=== PATIENT | male | born 1960 | race African-American/Black ===

== ENCOUNTER 2016-07-04 18:47 | Emergency (ER) | payer OTHER ==
[~2016-07-04] VITALS: Ht 167.6 cm; Wt 93.0 kg
[~2016-07-04 18:47] MED LIST: IOHEXOL-300 100 ML BOTTLE ONE; LISI-604 PO; METF10002 PO; PRED5TAB48 PO; SODIUM CHLORIDE 0.9% 10ML VIAL ONE
[2016-07-04 20:48] LABS: CHLORIDE 103 mEq/L (98-107)
[2016-07-04 20:49] LABS: BASOPHILS % 0.6 % (0.0-2.0); DIFFERENTIAL COMMENT 0; EOSINOPHILS % 0.4 % (0.0-5.0); HEMATOCRIT. 40.7 % (42.0-52.0); HEMOGLOBIN. 13.3 g/dL (14.0-18.0); LYMPHOCYTES % 11.5 % (20.0-50.0); MEAN CORPUSCULAR HGB CONC 32.7 g/dL (31.0-37.0); MEAN CORPUSCULAR VOLUME 85.7 fL (80.0-94.0); MEAN PLATELET VOLUME 8.7 fl (7.4-10.4); NEUTROPHILS % 78.5 % (40.0-76.0); PLATELET 216 x1000/uL (130-400); RED BLOOD CELL COUNT 4.75 mill/uL (4.7-6.1); RED CELL DISTRIBUTION WIDTH 14.9 % (11.6-14.6); WHITE BLOOD COUNT 17.8 x1000/uL (4.5-11.0)
[2016-07-04 20:54] LABS: PARTIAL THROMBOPLASTIN TIME 24.7 sec (24.0-34.0); PROTHROMBIN TIME 10.6 sec
[2016-07-04 20:55] LABS: ALBUMIN 2.9 g/dL (3.4-5.0); ANION GAP 18; CALCIUM 8.4 mg/dL (8.5-10.1); CARBON DIOXIDE 25 mEq/L (21-32); INDEX HEMOLYSI 1 (1-3); INDEX ICTERIC 1 (1-4); INDEX LIPEMIC 1 (1-3); LIPASE 1310 IU/L (73-393); UREA NITROGEN BLOOD 21 mg/dL (7-21)
[2016-07-04 21:00] LABS: ALANINE AMINOTRANSFERASE 64 IU/L (13-61); TROPONIN I 0.02 ng/mL (0.00-0.04); eGFR > 60 mL/min (>60)
[2016-07-04] MEDS ORDERED: TRAMADOL 50MG TABLET PO NR (21:45)
[2016-07-04] MEDS ORDERED: IBUPROFEN 600MG TABLET PO NR (21:45)
[2016-07-04] MEDS ORDERED: POTASSIUM CHLORIDE 20MEQ TABLET SR PO NR (23:45)
[2016-07-05 02:34] VITALS: BP 154/91
== END 2016-07-05 02:58 | disposition home or self-care (01) ==
LOC: ER 18:48
DX: E11.42 Type 2 diabetes mellitus with diabetic polyneuropathy (principal); D72.829 Elevated white blood cell count, unspecified; E87.6 Hypokalemia; R74.8 Abnormal levels of other serum enzymes; I11.0 Hypertensive heart disease with heart failure; I50.9 Heart failure, unspecified; R20.2 Paresthesia of skin; J44.9 Chronic obstructive pulmonary disease, unspecified; E78.00 Pure hypercholesterolemia, unspecified
CPT/HCPCS: 36415; 71010; 74177; 80053; 82962; 83690; 84484; 85025; 85610; 85730; 93005; 99285; A4216; Q9967; Z7610

== ENCOUNTER 2016-07-06 05:15 | Emergency (ER) | payer OTHER ==
[~2016-07-06] VITALS: Ht 170.2 cm; Wt 91.0 kg
[~2016-07-06 05:15] MED LIST changes: -IOHEXOL-300 100 ML BOTTLE ONE; -SODIUM CHLORIDE 0.9% 10ML VIAL ONE
[2016-07-06 05:34] VITALS: BP 127/91
== END 2016-07-06 06:53 | disposition home or self-care (01) ==
LOC: ER 05:15
DX: Z76.0 Encounter for issue of repeat prescription (principal); E11.9 Type 2 diabetes mellitus without complications; I10 Essential (primary) hypertension
CPT/HCPCS: 82962; 99283

== ENCOUNTER 2016-08-17 16:07 | Emergency (ER) | payer MEDICAID, OTHER ==
[~2016-08-17] VITALS: Ht 167.6 cm; Wt 91.0 kg
[2016-08-17] MEDS ORDERED: TRAMADOL 50MG TABLET PO ONE (17:45)
[2016-08-17 18:08] LABS: EOSINOPHILS % 1.2 % (0.0-5.0); HEMATOCRIT. 38.2 % (42.0-52.0); HEMOGLOBIN. 12.4 g/dL (14.0-18.0); LYMPHOCYTES % 10.5 % (20.0-50.0); MEAN CORPUSCULAR HEMOGLOBIN 27.9 pg (28.0-32.0); MEAN CORPUSCULAR VOLUME 85.8 fL (80.0-94.0); MEAN PLATELET VOLUME 8.9 fl (7.4-10.4); MONOCYTES % 9.4 % (2.0-8.0); NEUTROPHILS % 77.9 % (40.0-76.0); PLATELET 202 x1000/uL (130-400); RED BLOOD CELL COUNT 4.45 mill/uL (4.7-6.1); RED CELL DISTRIBUTION WIDTH 14.8 % (11.6-14.6)
[2016-08-17 18:10] LABS: CARBON DIOXIDE 25 mEq/L (21-32); CHLORIDE 108 mEq/L (98-107)
[2016-08-17 18:18] LABS: TROPONIN I < 0.02 ng/mL (0.00-0.04)
[2016-08-17 18:52] VITALS: BP 130/88
== END 2016-08-17 19:18 | disposition home or self-care (01) ==
LOC: ER 19:00
DX: R07.9 Chest pain, unspecified (principal); J45.909 Unspecified asthma, uncomplicated; E11.9 Type 2 diabetes mellitus without complications; I10 Essential (primary) hypertension; J84.89 Other specified interstitial pulmonary diseases; M33.20 Polymyositis, organ involvement unspecified; Z76.0 Encounter for issue of repeat prescription
CPT/HCPCS: 36415; 71010; 80053; 83880; 84484; 85025; 99285; Z7610

== ENCOUNTER 2016-09-19 12:15 | Emergency (ER) | payer OTHER ==
[~2016-09-19] VITALS: Ht 165.1 cm; Wt 100.0 kg
[2016-09-19 14:31] LABS: PROTHROMBIN TIME 10.2 sec
[2016-09-19 14:33] LABS: *AMPHETAMINES SCREEN URINE NEGATIVE (NEGATIVE); *BARBITURATES SCREEN URINE NEGATIVE (NEGATIVE); *BENZODIAZEPINES SCREEN URINE NEGATIVE (NEGATIVE); *COCAINE SCREEN URINE NEGATIVE (NEGATIVE); CANNABINOID URINE SCREEN NEGATIVE (NEGATIVE); METHADONE URINE SCREEN NEGATIVE (NEGATIVE); PHENCYCLIDINE URINE SCREEN NEGATIVE (NEGATIVE)
[2016-09-19 14:36] LABS: CARBON DIOXIDE 25 mEq/L (21-32); CHLORIDE 106 mEq/L (98-107); HEMATOCRIT. 41.3 % (42.0-52.0); HEMOGLOBIN. 13.7 g/dL (14.0-18.0); MEAN CORPUSCULAR HEMOGLOBIN 28.3 pg (28.0-32.0); MEAN CORPUSCULAR VOLUME 85.3 fL (80.0-94.0); MEAN PLATELET VOLUME 8.8 fl (7.4-10.4); PLATELET 207 x1000/uL (130-400); RED BLOOD CELL COUNT 4.85 mill/uL (4.7-6.1); RED CELL DISTRIBUTION WIDTH 15.3 % (11.6-14.6)
[2016-09-19 14:38] LABS: TROPONIN I < 0.02 ng/mL (0.00-0.04)
[2016-09-19 14:44] LABS: OPIATES URINE SCREEN NEGATIVE (NEGATIVE)
[2016-09-19] MEDS ORDERED: KETOROLAC 30MG/ML VIAL IV ONE (15:30)
[2016-09-19] MEDS ORDERED: HYDROCODONE/ACETAMINOPHEN 5/325MG TABLET PO ONE (16:00)
[2016-09-19 16:09] VITALS: BP 135/98
[2016-09-19 16:39] LABS: PLATELET ESTIMATE NORMAL
== END 2016-09-19 16:11 | disposition home or self-care (01) ==
LOC: ER 14:32
DX: R09.1 Pleurisy (principal); I10 Essential (primary) hypertension; E11.9 Type 2 diabetes mellitus without complications; J45.909 Unspecified asthma, uncomplicated; Z87.01 Personal history of pneumonia (recurrent)
CPT/HCPCS: 36415; 71010; 80048; 80305; 82962; 83880; 84484; 85025; 85610; 93005; 99285; Z7610

== ENCOUNTER 2016-11-29 19:22 | Emergency (ER) | payer OTHER ==
[~2016-11-29] VITALS: Ht 167.6 cm; Wt 91.0 kg
[2016-11-29] MEDS ORDERED: KETOROLAC 30MG/ML VIAL IV STA (22:26)
[2016-11-29] MEDS ORDERED: SODIUM CHLORIDE 0.9% 1,000 ML IV ONE (22:26)
[2016-11-29 22:50] LABS: CLARITY URINE CLEAR (CLEAR); COLOR URINE YELLOW (YELLOW); GLUCOSE URINE 3+ (NEGATIVE); KETONES URINE NEGATIVE (NEGATIVE); LEUKOCYTE ESTERASE URINE NEGATIVE (NEGATIVE); NITRITE URINE NEGATIVE (NEGATIVE); OCCULT BLOOD URINE NEGATIVE (NEGATIVE); PROTEIN URINE NEGATIVE (NEGATIVE); SPECIFIC GRAVITY URINE 1.037 (1.005-1.030); UROBILINOGEN URINE 0.2 E.U./dL (0.2-1.0)
[2016-11-29 22:52] LABS: HEMATOCRIT. 40.9 % (42.0-52.0); HEMOGLOBIN. 13.2 g/dL (14.0-18.0); MEAN CORPUSCULAR HEMOGLOBIN 27.7 pg (28.0-32.0); MEAN PLATELET VOLUME 9.2 fl (7.4-10.4); PLATELET 183 x1000/uL (130-400); RED BLOOD CELL COUNT 4.75 mill/uL (4.7-6.1); RED CELL DISTRIBUTION WIDTH 15.6 % (11.6-14.6)
[2016-11-29 22:59] LABS: PROTHROMBIN TIME 10.8 sec (9.4-11.6)
[2016-11-29 23:05] LABS: CARBON DIOXIDE 20 mEq/L (21-32); CHLORIDE 103 mEq/L (98-107); CREATINE KINASE 310 IU/L (39-308)
[2016-11-29 23:08] LABS: PLATELET ESTIMATE NORMAL
[2016-11-29] MEDS ORDERED: INSULIN REGULAR (HUMULIN R) UD 100 UNITS/ML SYR IV ONE (23:30)
[2016-11-29] MEDS ORDERED: MORPHINE SULFATE 4 MG/ML CPJ (NOT FOR IM USE) IV ONE (23:45)
[2016-11-30] MEDS ORDERED: INSULIN REGULAR (HUMULIN R) 300UNITS/3ML IV SCH ×2 (00:15→00:45)
[2016-11-30 00:32] VITALS: BP 120/68
[2016-11-30] MEDS ORDERED: INSULIN REGULAR (HUMULIN R) UD 100 UNITS/ML SYR IV ONE (00:45)
== END 2016-11-30 01:10 | disposition home or self-care (01) ==
LOC: ER 21:35
DX: M60.9 Myositis, unspecified (principal); E11.65 Type 2 diabetes mellitus with hyperglycemia; Z79.4 Long term (current) use of insulin
CPT/HCPCS: 36415; 71010; 80053; 81001; 82550; 82962; 85025; 85610; 93005; 96361; 96374; 96375; 99285; J1815; J1885; J2270; J7030

== ENCOUNTER 2016-12-05 22:48 | Emergency (ER) | payer OTHER ==
[~2016-12-05] VITALS: Ht 167.6 cm; Wt 90.0 kg
[2016-12-05 23:02] VITALS: BP 133/95
== END 2016-12-06 00:50 | disposition left against medical advice (07) ==
LOC: ER 22:48
DX: R07.9 Chest pain, unspecified (principal); Z53.21 Procedure and treatment not carried out due to patient leaving prior to being seen by health care provider
CPT/HCPCS: 93005

== ENCOUNTER 2017-01-13 21:41 | Emergency (ER) | payer MEDICAID, OTHER ==
[~2017-01-13] VITALS: Ht 167.6 cm; Wt 90.0 kg
[2017-01-13 22:10] VITALS: BP 179/122
[2017-01-13] MEDS ORDERED: KETOROLAC 30MG/ML VIAL IV STA (22:50)
[2017-01-13] MEDS ORDERED: SODIUM CHLORIDE 0.9% 1,000 ML IV ONE (22:50)
== END 2017-01-14 00:33 | disposition left against medical advice (07) ==
LOC: ER 22:29
DX: R07.89 Other chest pain (principal); I11.0 Hypertensive heart disease with heart failure; I50.9 Heart failure, unspecified; E78.00 Pure hypercholesterolemia, unspecified; E11.9 Type 2 diabetes mellitus without complications; J45.909 Unspecified asthma, uncomplicated
CPT/HCPCS: 93005; 99283; J7030